=== PATIENT | male | born 1960 | race Caucasian/White ===

== ENCOUNTER → 2023-10-17 07:41 | Outpatient (REF) | payer OTHER, SELFPAY | LOC: WOUND 07:41 | PROVIDERS: ATTENDING PHYSICIAN Surgery | DX: L97.312 Non-pressure chronic ulcer of right ankle with fat layer exposed (principal); I87.311 Chronic venous hypertension (idiopathic) with ulcer of right lower extremity; I87.2 Venous insufficiency (chronic) (peripheral); I10 Essential (primary) hypertension | CPT/HCPCS: 99203 ==

== ENCOUNTER → 2023-10-24 08:36 | Outpatient (REF) | payer OTHER, SELFPAY | LOC: WOUND 08:36 | PROVIDERS: ATTENDING PHYSICIAN Surgery | DX: L97.312 Non-pressure chronic ulcer of right ankle with fat layer exposed (principal); I87.311 Chronic venous hypertension (idiopathic) with ulcer of right lower extremity; I87.2 Venous insufficiency (chronic) (peripheral); I10 Essential (primary) hypertension | CPT/HCPCS: 99213 ==

== ENCOUNTER → 2023-10-31 08:31 | Outpatient (REF) | payer OTHER, SELFPAY | LOC: WOUND 08:31 | PROVIDERS: ATTENDING PHYSICIAN Surgery | DX: L97.312 Non-pressure chronic ulcer of right ankle with fat layer exposed (principal); I87.311 Chronic venous hypertension (idiopathic) with ulcer of right lower extremity; I87.2 Venous insufficiency (chronic) (peripheral); I10 Essential (primary) hypertension | CPT/HCPCS: 99213 ==